=== PATIENT | male | born 1990 | race Caucasian/White ===

== ENCOUNTER 2018-12-01 16:51 | Emergency (ER) | payer MEDICAID ==
[~2018-12-01] VITALS: Ht 177.8 cm; Wt 81.8 kg
[2018-12-01 16:55] VITALS: Ht 177.8 cm; Wt 81.8 kg
[2018-12-01] MEDS ORDERED: KETOROLAC 15 MG INJ IV STA (18:11)
[2018-12-01] MEDS ORDERED: LEVETIRACETAM 1000 MG (PMX) 100 ML IVPB ONE (18:30)
[2018-12-01] MEDS ORDERED: SOD CHLORIDE 0.9% 1,000 ML IV ONE (18:30)
[2018-12-01] MEDS ORDERED: VALPROATE INJ 500 MG in SOD CHLORIDE 0.9% 50 ML IVPB ONE (20:00)
[2018-12-01] MEDS ORDERED: PROCHLORPERAZINE 10 MG INJ IV ONE (20:00)
[2018-12-01] MEDS ORDERED: DIPHENHYDRAMINE 50 MG INJ IV ONE (20:00)
--- NOTE | 2018-12-01 21:07 | ERD ---
ER Documentation Chief Complaint Chief Complaint newly dx with seizure disorder; seizure today, non medicated. a/o x 4 HPI This is a 28-year-old male with a past medical history of abuse of Valium for which he stopped suddenly and had a seizure in August of last year, worked up fully and ultimately started on antiepileptic medications which he has been noncompliant with who is presenting with a breakthrough seizure today. The patient reports that he did not want to take any medications any longer, so he never got his antiseizure medication filled. The patient was reportedly at his desk at work. He felt fatigued because he had been moving boxes all day in a hot space. The next thing the patient remembers is being on the floor next to his desk. He was confused after the event, but he does remember his coworkers s aying that he had a seizure. He does not have any further information about the seizure event. The patient currently endorses a throbbing mild to moderate frontal headache with no photophobia or photophobia. He does not endorse any neck stiffness or pain. He does not believe that he had any head trauma or injury. He denies nausea or vomiting. He has no focal deficits. He has no weakness or numbness or tingling to the face or extremities. The patient endorses a family history of seizures or cerebral aneurysm. The patient denies feeling sick recently. The patient denies fever or chills. The patient does not endorse back pain. The patient denies lightheadedness or dizziness. The patient has had no chest pain or trouble breathing. The patient denies abdominal pain. The patient denies changes to bowel movements or urination. He was not incontinent of urine or stool. ROS All systems reviewed and are negative except as per history of present illness. Medications Home Meds No Active Prescriptions or Reported Meds Allergies Allergies: Coded Allergies: No Known Allergy (Unverified , 12/01/18) PMhx/Soc Medical and Surgical Hx: pt denies Surgical Hx History of Surgery: No Anesthesia Reaction: No Hx Neurological Disorder: Yes (Seizures) Hx Respiratory Disorders: No Hx Cardiac Disorders: No FmHx Family History: No diabetes Physical Exam Vitals Vital Signs Date Temp Pulse Resp B/P (MAP) Pulse Ox O2 O2 Flow FiO2 Time Delivery Rate 12/01/18 65 15 115/82 99 Room Air 18:30 (93) 12/01/18 98.2 94 15 140/89 100 16:55 (106) Physical Exam Const: No apparent distress, well-developed, well-nourished Head: Normocephalic, Atraumatic Eyes: Normal Conjunctiva. Extraocular movements intact. Pupils equal, round and reactive to light ENT: Normal External Ears, Nose and Mouth. Neck: Full range of motion. No meningismus. Resp: Clear to auscultation bilaterally, No wheezes, rales or rhonchi Cardio: Regular rate and rhythm. No murmurs, rubs or gallops Abd: Soft, non tender, non distended. Normal bowel sounds Skin: No petechiae or rashes Back: No midline tenderness. No CVA tenderness Ext: No cyanosis, or edema Neur: Awake and alert, oriented 4. Cranial nerves intact. No facial droop. Normal strength, sensation and coordination. Psych: Normal Mood and Affect Results 24 hrs Current Medications Medications Dose Sig/Carina Start Time Status Last (Trade) Ordered Route PRN Stop Time Admin Dose Reason Admin Sodium 1,000 ml @ Q1H ONCE 12/01/18 DC 12/01/18 Chloride 1,000 mls/hr IV 18:30 12/01/18 18:31 19:29 Ketorolac 15 mg ONCE STAT 12/01/18 DC 12/01/18 Tromethamine IV 18:11 12/01/18 18:31 (Toradol) 18:12 100 ml @ ONCE ONCE 12/01/18 DC 12/01/18 Levetiracetam 400 mls/hr IVPB 18:30 12/01/18 18:31 18:44 25 mg ONCE ONCE 12/01/18 DC 12/01/18 Diphenhydrami IV 20:00 12/01/18 20:05 ne HCl 20:01 (Benadryl) 10 mg ONCE ONCE 12/01/18 DC 12/01/18 Prochlorperaz IV 20:00 12/01/18 20:05 ine 20:01 (Compazine Inj) Valproate 55 ml @ ONCE ONCE 12/01/18 DC Sodium 500 200 mls/hr IVPB 20:00 12/01/18 mg/Sodium 20:16 Chloride Procedures/MDM MDM The patient's presentation warrants further investigation. Previous medical records, if available, were reviewed. EKG EKG read by me: Rate/Rhythm: Regular rate and rhythm at a rate of 63 bpm Intervals: Normal [place]: Normal Impression: No evidence of acute ischemia or arrhythmia IMAGING Imaging and Radiology interpretation reviewed. CT head FINDINGS: There is no intracranial hemorrhage, mass effect, or midline shift. No extra-axial fluid collection is seen. The ventricles and sulci are normal in size and configuration. The density of the brain is normal, and the [place] white matter differentiation appears well-preserved. The visualized paranasal sinuses and osseous structures are grossly unremarkable. IMPRESSION: No evidence of acute intracranial pathology. The brain is normal in appearance. Electronically viewed and signed by .Jw Samaniego MD, on 12/01/2018 20:35 TREATMENT/DISPOSITION The patient presents after a breakthrough seizure, likely related to noncompliance of his antiepileptic medications. I suspect that the patient's headache is likely related to his seizure. The patient has no focal deficits. The neurologic exam is reassuring. I have decreased suspicion for cerebral ischemia. There was no trauma or injury. There is no personal or family history of cerebral aneurysm. This is not the worst headache of the patient's life. It was not acutely severe. It is been progressive in nature. I have decreased suspicion for SAH or other ICH. I have low suspicion for a metabolic etiology of symptoms. I do not see evidence of an infectious etiology. The patient does not endorse a toxicologic pathology. I have low suspicion for temporal arteritis, cavernous venous thrombosis, subdural hematoma, epidural hematoma, meningitis. Differential diagnosis includes migraine, tension headache, cluster headache. The patient was treated with IV fluids, Toradol, Compazine, Benadryl, Keppra and Depakote. Upon reevaluation of the patient, symptoms have improved. No emergent diagnoses were identified. At this time, I feel that the patient stable for discharge. Th e patient was instructed to follow-up with a primary care physician in 1-3 days. The patient will be given strict precautions with which to return to the emergency department. Prescriptions: Keppra The patient's blood pressure was elevated at greater than 120/80 while in the emergency department. The patient was otherwise stable with no evidence of hypertensive urgency or emergency. The patient does not require admission for blood pressure control. I have discussed with the patient the risks of hyperte nsion. I have instructed the patient to return to the ER for any new or worsening symptoms including chest pain, shortness of breath, headache, blurred vision, confusion, nausea, vomiting or LOC. I have advised the patient to follow up with the primary care physician for outpatient monitoring and treatment for hypertension in 1-3 days. Disclaimer: Inadvertent spelling and grammatical errors are likely due to EHR/dictation software use and do not reflect on the overall quality of patient care. Note that the electronic time recorded on this note does not necessarily reflect the actual time of the patient encounter. Departure Diagnosis: Primary Impression: Noncompliance with medications Additional Impressions: Seizure disorder Breakthrough seizure Headache Headache type: unspecified Headache chronicity pattern: acute headache Intractability: not intractable Qualified Codes: R51 - Headache Condition: Stable Patient Instructions: Seizure, Recurrent [Adult], Self-Care for Headaches Additional Instructions: Thank you for for coming to [facility] for your care today. Please ask your nurse or provider if you have questions about your care today and do not leave until all your questions have been answered. Please use any medications given as directed and follow-up with your doctor (or the doctor you were referred to) in the next 1-3 days. If you do not have a primary care doctor you may follow up at the [facility] or [facility] (listed below). You may also use motrin and tylenol as needed for fever and/or pain unless instructed otherwise by your provider or nurse. Indications for more urgent follow-up have been discussed, but you may return to the Emergency Department at ANY time for any worrisome or worsening symptoms. If you have abdominal pain, please know that no test or exam you received is perfect and you should follow up within 8 hours for continued pain. If you had any imaging studies today, such as an X-Ray or CT Scan, these studies will be reviewed later by a radiologist. You will be called if there are important findings that were not identified today, so make sure the contact information you provided at registration is correct. If you received any narcotic pain control medicine today, such as Vicodin, Morphine or Dilaudid, your coordination and judgment may be affected for a number of hours. Please do not drive or operate heavy machinery, and you may want someone to assist you at home. If you were given a prescription for narcotic medication, be aware that it is very addictive- use sparingly and only if necessary. PLEASE SEEK FURTHER EVALUATION AND MANAGEMENT AT YOUR DOCTORS OFFICE WITHIN THE NEXT 1-3 DAYS. IT IS YOUR RESPONSIBILITY TO MAKE AN APPOINTMENT FOR FOLOW-UP CARE. IF YOU HAVE A PRIMARY DOCTOR, PLEASE CALL THEIR OFFICE TO SCHEDULE AN APPOINTMENT FOR FOLLOW UP. IF YOU DO NOT HAVE A PRIMARY DOCTOR YOU CAN CALL OUR PHYSICIAN REFERRAL HOTLINE AT IF YOU CAN NOT AFFORD TO SEE A PHYSICIAN YOU CAN CHOSE FROM THE FOLLOWING [facility] CL[facility]ICS: [facility] [address] [facility] [address] [facility] [facility] [address] [facility] [address] [facility] [address] [facility]. [facility]. [address] KIMI MARTINEZ MD Dec 01, 2018 21:07
[2018-12-01] MEDS ORDERED: LEVE250T66 PO (21:08)
[2018-12-01 21:56] VITALS: BP 108/64; PULSE 61; RESP 22
== END 2018-12-01 21:52 | disposition home or self-care (01) ==
LOC: E/R 16:51
DX: G40.909 Epilepsy, unspecified, not intractable, without status epilepticus (principal); R40.2142 Coma scale, eyes open, spontaneous, at arrival to emergency department; R40.2362 Coma scale, best motor response, obeys commands, at arrival to emergency department; R40.2252 Coma scale, best verbal response, oriented, at arrival to emergency department; R51 Headache
CPT/HCPCS: 70450; J0780; J1200; J1885; J1953; J7030; Z7610; 93005; 96374; 96375